=== PATIENT | female | born 1955 | race Caucasian/White ===

== ENCOUNTER 2018-10-26 17:59 | Emergency (ER) | payer BC, OTHER ==
--- OUTSIDE RECORDS SUMMARY | 2018-10-26 18:05 | XMS REPORT | Continuity of Care Document ---
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 Employees Georgina Bosch PayID: [id number] [address] [place] [address] Advance Directives Description No Information Available Problems Active Problems Provider Date Flatulence, eructation and gas pain Trino Gee MD Onset: 10/12/2018 Family History Description No Information Available Social History Type Date Description Comments Sex Unknown Tobacco Use Start: Unknown End: Unknown Patient is a former smoker Smoking Status Reviewed: 10/12/18 Patient is a former smoker Allergies, Adverse Reactions, Alerts Active Allergies Reaction Severity Comments Date Lamotrigine 10/12/2018 Medications Active Medications SIG Qnty Indications Ordering Date Provider Clonazepam take 1 tablet by Unknown 1mg Tablets mouth every evening at bedtime Fluvoxamine Maleate ER take 2 capsules by Unknown mouth every morning 150mg Caps ER 24HR with food Aripiprazole Unknown 2mg Tablets Trazodone HCL Unknown 50mg Tablets Breo Ellipta Unknown 200-25mcg/Inh Aerosol Mometasone Furoate instill 2 sprays into Unknown each nostril daily 50mcg/Act Suspension Levocetirizine take 1 tablet by Unknown Dihydrochloride mouth once daily as 5mg Needed Tablets Albuterol Sulfate HFA inhale 2 puffs by Unknown mouth every 4 hours 108(90Base) mcg/Act as Needed Aerosol Prolia inject subcutaneously Unknown 60mg/ml Soln every 6 MonthsTo Be Prefill Syringe Administered AT Doctor's Office Metoprolol Succinate Unknown ER 50mg Tablets ER 24HR Fluvoxamine Maleate Unknown 100mg Tablets Ra Vitamin D-3 take 1 capsule by Unknown 5000Unit mouth once daily or 7 Capsules capsules weekly Azelastine HCL (Nasal) instill 1 spray into Unknown each nostril twice a 0.1% Solution day for 7 days Immunizations Description No Information Available Vital Signs Date Vital Result Comment 10/12/2018 2:22pm Height 61 inches 5'1" Weight 132.00 lb BP Systolic 106 mmHg BP Diastolic 65 mmHg Heart Rate 60 /min BMI (Body Mass Index) 24.9 kg/m2 Results Description No Information Available Procedures Description No Information Available Encounters Description No Information Available Plan of Treatment Future Appointment(s):10/27/2018 10:00 am - Laboratory at [facility]10/12/2018 - Trino Gee, MDR14.0 Abdominal distension (gaseous)New Labs:Breath Test Sbbo (Gai), Ordered: 10/12/18Comments:I had a very long discussion with the patient regarding her symptoms. We discussed bacterial overgrowth carbohydrate malabsorption and celiac disease. We also discussed irritable bowel syndrome. At this point I would like to evaluate her for small intestinal bacterial overgrowth with a breath test. I will make arrangements for her. I additionally gave her peppermint oil capsules to try these in case there is a component of irritable bowel syndrome here. She will try these and call me back. I will follow up with their her bacterial overgrowth breath test
[2018-10-26] MEDS ORDERED: NS 0.9% 1000 ML** 1,000 ML IV SCH (18:45)
--- NOTE | 2018-10-26 18:48 | UC ---
Cardiac HPI - HPI Summary HPI Summary: OVER THE PAST FEW DAYS PATIENT HAS HAD WORSENING INTERMITTENT MIDSTERNAL CHEST PRESSURE AND SHORTNESS OF BREATH. FEELS UNSTEADY ON HER FEET AND STATES SHE HAS BEEN LOSING HER BALANCE AND FALLING INTO THINGS. SHE IS COMPLAINING OF SOME NUMBNESS AND TINGLING IN HER FINGERS. HAS DRY MOUTH. IS COMPLAINING OF SOME DIZZINESS AND CONFUSION. STATES SHE HAS HISTORY OF AN ARRHYTHMIA BUT NO OTHER CARDIAC HISTORY THAT SHE IS REPORTING. AT THE TIME OF EXAM SHE STATES SHE IS CHEST PAIN-FREE. - History of Current Complaint Chief Complaint: UCChestPain Stated Complaint: CHEST PAIN Time Seen by Provider: 10/26/18 18:02 Hx Obtained From: Patient Onset/Duration: Gradual Onset, Lasting Days, Still Present Initial Severity: Moderate Current Severity: Moderate Pain Intensity: 4 Chest Pain Location: Mid Sternal Character: Pressure/Squeezing Aggravating Factor(s): Nothing Alleviating Factor(s): Nothing Associated Signs & Symptoms: Positive: Chest Pain, Anxiety, Numbness, Tingling, Dizziness, SOB. Negative: Nausea/Vomiting, Cough - Allergy/Home Medications Allergies/Adverse Reactions: Allergies Allergy/AdvReac Type Severity Reaction Status Date / Time bee venom protein (honey bee) Allergy Severe Anaphylatic Verified 10/26/18 18:12 Shock lamotrigine Allergy Severe REACTS Verified 10/26/18 18:12 WITH "A SYNDROME" Home Medications: Home Medications Fluvoxamine (NF) [Luvox (NF)] 300 mg PO DAILY 10/26/18 [History Confirmed ] Meds For Depression* 10/26/18 [History] Meds For Ocd* 10/26/18 [History] Metoprolol Tartrate TAB* [Lopressor TAB*] 25 mg PO DAILY 10/26/18 [History Confirmed 10/26/18] clonazePAM TAB(*) [KlonoPIN TAB(*)] 1 mg PO DAILY 10/26/18 [History Confirmed ] traZODone TAB* [Desyrel TAB*] 50 mg PO DAILY 10/26/18 [History Confirmed ] PMH/Surg Hx/FS Hx/Imm Hx Cardiovascular History: Cardiac Disease - "ARRHYTHMIA" Psychological History: Anxiety, Depression - Surgical History Surgical History: Yes Surgery Procedure, Year, and Place: - Family History Known Family History: Positive: Hypertension - Social History Alcohol Use: None Substance Use Type: None Smoking Status (MU): Former Smoker Review of Systems All Other Systems Reviewed And Are Negative: Yes Constitutional: Positive: Fatigue Respiratory: Positive: Shortness Of Breath Cardiovascular: Positive: Chest Pain Gastrointestinal: Positive: Negative Genitourinary: Positive: Negative Neurological: Positive: Weakness, Paresthesia, Other - DIZZY Physical Exam Triage Information Reviewed: Yes Appearance: No Pain Distress, Well-Nourished, Other: - APPEARS FATIGUED, LISTLESS Vital Signs: Initial Vital Signs Temp 97.6 F 10/26/18 18:05 Pulse 54 10/26/18 18:05 Resp 18 10/26/18 18:05 BP 125/63 10/26/18 18:05 Pulse Ox 98 10/26/18 18:05 Vital Signs Reviewed: Yes Eyes: Positive: Conjunctiva Clear ENT: Positive: Hearing grossly normal Neck: Positive: Supple, Nontender, No Lymphadenopathy Respiratory Exam: Normal Cardiovascular: Positive: Bradycardia - IRREGULAR Abdomen Description: Positive: Nontender, Soft Musculoskeletal: Positive: No Edema Neurological: Positive: Alert Psychological: Positive: Age Appropriate Behavior Skin: Negative: Rashes Diagnostics - EKG Cardiac Rate: NL - 62BPM Cardiac Rhythm: Sinus: Normal Ectopy: PVCs ST Segment: Normal - Assessment/Plan Course Of Treatment: PATIENT WITH MIDSTERNAL CHEST PRESSURE, DIZZINESS, SHORTNESS OF BREATH, INTERMITTENT CONFUSION ALL GETTING WORSE OVER THE PAST 5 DAYS. STATES SHE FEELS UNSTEADY ON HER FEET AND HAS BEEN STUMBLING INTO THINGS. ALSO COMPLAINING OF SOME NUMBNESS AND TINGLING IN HER HANDS AND DRY MOUTH. ON EKG SHE IS FOUND TO BE SOMEWHAT BRADYCARDIAC WITH MULTIPLE PVCS. GIVEN THIS CONSTELLATION OF SYMPTOMS SHE NEEDS A HIGHER LEVEL OF CARE THAN WHAT IS AVAILABLE HERE AT THE . SHE WILL BE TRANSFERRED BY AMBULANCE TO THE [facility] FOR FURTHER EVALUATION. - Clinical Impression Provider Diagnosis: Chest pain, Bradycardia - Physician Notifications Discussed Patient Care With: Misty Kumar - TO [facility] BY AMBULANCE Time Discussed With Above Provider: 18:39 Instructed by Provider To: MD Will See In ED Discharge - Sign-Out/Discharge Documenting (check all that apply): Patient Departure All imaging exams completed and their final reports reviewed: No Studies - Discharge Plan Condition: Guarded Disposition: TRANS HIGHER LVL OF CARE FAC Referrals: Jennifer GARRETT,Alma Cortes [Primary Care Provider] - - Billing Disposition and Condition Condition: GUARDED Disposition: Trans Higher Lvl of Care Fac
[2018-10-26 18:50] VITALS: BP 101/51
== END 2018-10-26 18:57 | disposition short-term general hospital (02) ==
LOC: UCEAST 17:59
DX: R07.9 Chest pain, unspecified (principal); R00.1 Bradycardia, unspecified
CPT/HCPCS: 93005; 99214; G0463

== ENCOUNTER 2018-10-26 19:21 | Emergency (ER) | payer BC ==
[2018-10-26 20:33] LABS: ABS Eosinophils 0.1 10^3/ul (0-0.6); ABS Lymphocytes 0.8 10^3/ul (1.0-4.8); ABS Monocytes 0.3 10^3/ul (0-0.8); ABS Neutrophils 2.7 10^3/ul (1.5-7.7); Eosinophil % 1.5 %; Hematocrit 41 % (35-47); Hemoglobin 13.7 g/dL (12.0-16.0); Lymphocyte % 21.4 %; Mean Corpuscular HGB Conc 34 g/dL (31-36); Mean Corpuscular Hemoglobin 32 pg (27-31); Mean Corpuscular Volume 96 fL (80-97); Mean Platelet Volume 8.4 fL (7.4-10.4); Nucleated Red Blood Cells % 0.1; Platelet Count 200 10^3/uL (150-450); Red Blood Count 4.25 10^6 /uL (3.70-4.87); Red Cell Distribution Width 13 % (10.5-15); White Blood Count 3.8 10^3/uL (3.5-10.8)
[2018-10-26 20:49] LABS: Albumin 4.1 g/dL (3.2-5.2); Albumin/Globulin Ratio 1.6 (1-3); BUN/Creatinine Ratio 18.1 (8-20); Calcium 8.6 mg/dL (8.6-10.3); EGFR Non-African American 69.4 (>60); Globulin 2.5 g/dL (2-4); Magnesium 1.9 mg/dL (1.9-2.7); Total Bilirubin 0.8 mg/dL (0.2-1.0); Total Protein 6.6 g/dL (6.4-8.9)
--- NOTE | 2018-10-26 21:11 | ED ---
Complex/Multi-Sys Presentation - HPI Summary HPI Summary: A 63 y/o F brought in by ambulance from [facility] presents to ED with chest discomfort described as pressure ongoing for the past week, and worsening in the past 5 days. Associated sx: intermittent tingling and numbness in fingers and toes; BOYKIN, dyspnea, dizziness, dry mouth, unsteady gait, blurry vision, mild pedal edema, memory loss. Denies syncope, fever, rash, weight loss, recent falls , head trauma. PMHx: hypotension previously, HTN, arrhythmia, OCD, anxiety and depression. Denies DM. She takes Metoprolol. Patient is [place] and states stress due to country's current political condition. 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 - History Of Current Complaint Chief Complaint: EDChestPainROMI Time Seen by Provider: 10/26/18 19:24 Hx Obtained From: Patient, EMS Onset/Duration: Gradual Onset, Lasting Weeks - one week, Still Present Timing: Constant Severity Currently: Moderate Severity Initially: Moderate Character: Pressure Aggravating Factor(s): Nothing Associated Signs And Symptoms: Positive: Dizziness, Edema - mild bilat LE, Other - pos: intermittent tingling and numbness in fingers and toes; BOYKIN, dyspnea , dry mouth, unsteady gait, blurry vision, memory loss. neg: rash, weight loss, recent falls, head trauma.. Negative: Syncope, Fever - Allergies/Home Medications Allergies/Adverse Reactions: Allergies Allergy/AdvReac Type Severity Reaction Status Date / Time bee venom protein (honey bee) Allergy Severe Anaphylatic Verified 10/26/18 19:36 Shock lamotrigine Allergy Severe REACTS Verified 10/26/18 19:36 WITH "A SYNDROME" PMH/Surg Hx/FS Hx/Imm Hx Previously Healthy: No Endocrine/Hematology History: Denies: Hx Diabetes Cardiovascular History: Reports: Hx Hypotension, Hx Hypertension Psychiatric History: Reports: Hx Anxiety, Hx Depression, Other Psychiatric Issues/Disorders - pos: OCD - Cancer History Hx Chemotherapy: No Hx Radiation Therapy: No - Surgical History Surgery Procedure, Year, and Place: Infectious Disease History: No Infectious Disease History: Denies: Traveled Outside the [place] in Last 30 Days - Family History Known Family History: Positive: Hypertension - Social History Occupation: Employed Full-time Lives: Alone Alcohol Use: None Hx Substance Use: No Substance Use Type: Reports: None Hx Tobacco Use: Yes Smoking Status (MU): Former Smoker Review of Systems Negative: Fever Positive: Blurred Vision Positive: Other - pos: dry mouth Positive: Chest Pain - described as discomfort/pressure Positive: Other - pos: dyspnea Positive: Edema - mild pedal edema Negative: Rash Neurological: Other - pos: dizziness, unsteady gait, memory loss Positive: Headache, Numbness - and tingling to fingers and toes. Negative: Syncope All Other Systems Reviewed And Are Negative: Yes Physical Exam - Summary Physical Exam Summary: Appearance: Well-appearing, Well-nourished, lying in bed comfortably, anxious Skin: Warm, dry, no obvious rash Eyes: sclera anicteric, no conjunctival pallor ENT: mucous membranes moist, pharynx appears normal Neck: Supple, nontender Respiratory: Clear to auscultation, no signs of respiratory distress Cardiovascular: Normal S1, S2. No murmurs. Normal distal pulses in tibial and radial bilaterally. Abdomen: Soft, nontender, normal active bowel sounds present Musculoskeletal: Normal, Strength/ROM Intact Neurological: A&Ox3, awake and alert, mentation is normal, speech is fluent and appropriate Psychiatric: affect is normal, does not appear depressed, anxious Triage Information Reviewed: Yes Vital Signs On Initial Exam: Initial Vitals Temp Pulse Resp BP Pulse Ox 97.1 F 60 16 128/65 100 10/26/18 19:25 10/26/18 19:25 10/26/18 19:25 10/26/18 19:25 10/26/18 19:25 Vital Signs Reviewed: Yes Diagnostics - Vital Signs Vital Signs Temp Pulse Resp BP Pulse Ox 10/26/18 20:29 35 19 100/44 97 10/26/18 20:01 57 18 96 10/26/18 19:59 59 19 105/52 98 10/26/18 19:29 52 12 128/65 100 10/26/18 19:28 63 94 10/26/18 19:25 97.1 F 60 16 128/65 100 - Laboratory Lab Results: Lab Results 10/26/18 10/26/18 10/26/18 Range/Units 20:14 20:14 20:14 WBC 3.8 (3.5-10.8) 10^3/uL RBC 4.25 (3.70-4.87) 10^6 /uL Hgb 13.7 (12.0-16.0) g/dL Hct 41 (35-47) % MCV 96 (80-97) fL MCH 32 H (27-31) pg MCHC 34 (31-36) g/dL RDW 13 (10.5-15) % Plt Count 200 (150-450) 10^3/uL MPV 8.4 (7.4-10.4) fL Neut % (Auto) 69.8 % Lymph % (Auto) 21.4 % [place] % (Auto) 6.7 % Eos % (Auto) 1.5 % Baso % (Auto) 0.6 % Absolute Neuts (auto) 2.7 (1.5-7.7) 10^3/ul Absolute Lymphs (auto) 0.8 L (1.0-4.8) 10^3/ul Absolute Monos (auto) 0.3 (0-0.8) 10^3/ul Absolute Eos (auto) 0.1 (0-0.6) 10^3/ul Absolute Basos (auto) 0.0 (0-0.2) 10^3/ul Absolute Nucleated RBC 0.0 10^3/ul Nucleated RBC % 0.1 Sodium 137 (135-145) mmol/L Potassium 4.0 (3.5-5.0) mmol/L Chloride 105 (101-111) mmol/L Carbon Dioxide 26 (22-32) mmol/L Anion Gap 6 (2-11) mmol/L BUN 15 (6-24) mg/dL Creatinine 0.83 (0.51-0.95) mg/dL Est GFR ( Amer) 84.0 (>60) Est GFR (Non-Af Amer) 69.4 (>60) BUN/Creatinine Ratio 18.1 (8-20) Glucose 94 (70-100) mg/dL Lactic Acid 0.6 (0.5-2.0) mmol/L Calcium 8.6 (8.6-10.3) mg/dL Magnesium 1.9 (1.9-2.7) mg/dL Total Bilirubin 0.80 (0.2-1.0) mg/dL AST 15 (13-39) U/L ALT 13 (7-52) U/L Alkaline Phosphatase 51 (34-104) U/L Troponin I 0.00 (<0.04) ng/mL Total Protein 6.6 (6.4-8.9) g/dL Albumin 4.1 (3.2-5.2) g/dL Globulin 2.5 (2-4) g/dL Albumin/Globulin Ratio 1.6 (1-3) TSH Pending Result Diagrams: 10/26/18 20:14 10/26/18 20:14 Lab Statement: Any lab studies that have been ordered have been reviewed, and results considered in the medical decision making process. - EKG 1934 Cardiac Rate: Bradycardia - 54 bpm EKG Rhythm: Sinus Bradycardia Summary of EKG Findings: Sinus asya at 54 BPM, P waves, QRS complex, and T waves are within normal limits, T waves and intervals are normal, no ischemic changes. Re-Evaluation - Re-Evaluation 1 Re-Evaluation Time: 23:05 Change: Improved Comment: Discussing results with patient and plans for discharge, patient is agreeable to this plan. Complex Multi-Symp Course/Dx Course Of Treatment: Patient is a 63 y/o F brought in by ambulance from [facility] presenting with chest discomfort/pressure ongoing for the past week and worsening. Associated sx: intermittent tingling and numbness in fingers and toes ; BOYKIN, dyspnea, dizziness, dry mouth, unsteady gait, blurry vision, mild pedal edema, memory loss. She takes Metoprolol. Lab work is without significant abnormality. EKG shows sinus asya at 54 BPM, P waves, QRS complex, and T waves are within normal limits, T waves and intervals are normal, no ischemic changes. Will discharge patient home. - Diagnoses Provider Diagnoses: Palpitations, Chest pain Discharge - Sign-Out/Discharge Documenting (check all that apply): Patient Departure - D/C Patient Received Moderate/Deep Sedation with Procedure: No - Discharge Plan Condition: Stable Disposition: HOME Patient Education Materials: Chest Pain (ED), Heart Palpitations (ED) Referrals: Jennifer GARRETT,Alma Cortes [Primary Care Provider] - 3 Days - Billing Disposition and Condition Condition: STABLE Disposition: Home - Attestation Statements Document Initiated by Scribe: Yes Documenting Scribe: Rohit Quigley Provider For Whom Scribe is Documenting (Include Credential): Dr. Jeremy Dawn MD Scribe Attestation: I, Rohit Quigley, scribed for Dr. Jeremy Dawn MD on 10/27/18 at 0308. Scribe Documentation Reviewed: Yes Provider Attestation: The documentation as recorded by the juany, Rohit Quigley accurately reflects the service I personally performed and the decisions made by me, Dr. Jeremy Dawn MD Status of Scribe Document: Viewed
[2018-10-26] MEDS ORDERED: LORazepam TAB(*) 1 MG PO ONE (21:23)
[2018-10-26 21:24] LABS: TSH (Thyroid Stimulating Horm) 1.04 mcIU/mL (0.34-5.60)
[2018-10-27 00:13] VITALS: BP 98/56
== END 2018-10-27 | disposition home or self-care (01) ==
LOC: ED 19:21
DX: R00.2 Palpitations (principal); R07.9 Chest pain, unspecified; R42 Dizziness and giddiness; R60.0 Localized edema; Z87.891 Personal history of nicotine dependence; H53.8 Other visual disturbances; I10 Essential (primary) hypertension
CPT/HCPCS: 36415; 80053; 83605; 83735; 84443; 84484; 85025; 86618; 86703; 93005; 99283; A9270-GY

== ENCOUNTER 2024-04-17 06:56 | Observation (INO) ==
[2024-04-17 07:22] LABS: ABS Eosinophils 0.1 10^3/uL (0.0-0.5); ABS Lymphocytes 0.6 10^3/uL (1.0-4.8); ABS Monocytes 0.5 10^3/uL (0.0-0.9); ABS Neutrophils 5.9 10^3/uL (1.5-7.6); Eosinophil % 1.5 %; Hematocrit 39.7 % (35-45); Hemoglobin 13.8 g/dL (11.5-14.3); Lymphocyte % 9.1 %; Mean Corpuscular Hemoglobin 33.2 pg (27-33); Mean Corpuscular Hgb Conc 34.9 g/dL (31-36); Mean Corpuscular Volume 95.1 fL (80-97); Mean Platelet Volume 7.6 fL (7.5-11.2); Platelet Count 215 10^3/uL (150-450); Red Blood Count 4.17 10^6/uL (3.63-4.92); Red Cell Distribution Width 12.4 % (12-17); White Blood Count 7.1 10^3/uL (3.8-11.8)
[2024-04-17 07:24] LABS: INR 1.16 (0.85-1.14)
[2024-04-17 08:05] LABS: Albumin 4.1 g/dL (3.2-5.2); Albumin/Globulin Ratio 1.9 (1-3); Calcium 9.5 mg/dL (8.6-10.3); Creatinine, Serum 1.07 mg/dL (0.51-0.95); Globulin 2.2 g/dL (2-4); Magnesium 1.8 mg/dL (1.9-2.7); Potassium 3.6 mmol/L (3.5-5.0); Total Bilirubin 1.4 mg/dL (0.2-1.0); Total Protein 6.3 g/dL (6.4-8.9); eGFR CKD-EPI 56.2 (>60)
[2024-04-17] MEDS: Morphine 4 MG/ML VIAL (1 ml) IV ONE (08:25)
[2024-04-17] MEDS: Ondansetron 4 mg VIAL 2 MG/ML 2 ml VIAL IV ONE (08:25)
[2024-04-17] MEDS: Magnesium Sulfate IV 1GM/100ML 1 GM/100 ML BAG IV ONE (08:29)
[2024-04-17 08:55] LABS: High Sensitivity Troponin 1 Hr 4 pg/mL (<15)
[2024-04-17] MEDS: Famotidine IV 10 MG/ML 2 ml VIAL (20 mg) IV SLOW PU ONE (09:32)
[2024-04-17] MEDS: Iodixanol 320 (CONTRAST) 100 ML SDV IV ONE (10:50)
[2024-04-17] MEDS: Piperacillin/Tazobac 3.375 BAG 3.375 GM/100 ML BAG IV ONE (11:54)
[2024-04-17 12:07] LABS: C Reactive Protein 6.82 mg/L (<8.01)
[2024-04-17] MEDS: Lactated Ringers 1000 ml BAG 1,000 ML IV ONE ×2 (12:39→16:42)
[2024-04-17] MEDS ORDERED: Acetaminophen IV 1 GM/100ML 1,000 MG/100 ML BAG IV PRN (18:35)
[2024-04-17] MEDS: NS 0.9% 1000 ml BAG 1,000 ML IV SCH (18:51)
[2024-04-17] MEDS ORDERED: Zosyn per Pharmacy NOTE FOLLOW UP SCH (19:00)
[2024-04-17] MEDS ORDERED: Albuterol HFA INHALER 8 gm MDI INH PRN (19:29)
[2024-04-17] MEDS ORDERED: [UNRECOGNIZED DRUG - REMARK] PO SCH (19:30)
[2024-04-17] MEDS ORDERED: Naloxone 0.4 mg VIAL 0.4 mg/ml 1 ml VIAL IV PUSH PRN (20:00)
[2024-04-17] MEDS: Heparin 5000 UNITS/ML 1 mL VIAL SUBCUT SCH (20:06)
[2024-04-17] MEDS: Zosyn 3.375 GM IV - ED ONCE IV ONE (20:08)
[2024-04-17] MEDS ORDERED: [UNRECOGNIZED DRUG - REMARK] PO SCH (21:00)
[2024-04-17] MEDS ORDERED: Heparin 5000 UNITS/ML 1 mL VIAL SUBCUT SCH (21:00)
[2024-04-17] MEDS: Polyethylene Glycol 3350 17 GM PACKET PO SCH (21:03)
[2024-04-17] MEDS: Senna TAB 8.6 mg TAB PO SCH (21:04)
[2024-04-17] MEDS: FluvoxaMINE 50 mg TAB (NF) PO SCH (21:27)
[2024-04-17] MEDS: ZOSYN 3.375 GM Q8H per EXTENDED INFUSION IV SCH ×2 (22:53→23:48)
[2024-04-17] MEDS ORDERED: Fluticasone NASAL SPRAY 50MCG 16 gm SPRAY BTL BOTH NARES PRN (23:49)
[2024-04-18 06:53] LABS: ABS Eosinophils 0.1 10^3/uL (0.0-0.5); ABS Lymphocytes 0.9 10^3/uL (1.0-4.8); ABS Monocytes 0.4 10^3/uL (0.0-0.9); Hematocrit 35.7 % (35-45); Hemoglobin 12.3 g/dL (11.5-14.3); Lymphocyte % 26.2 %; Mean Corpuscular Hemoglobin 33.4 pg (27-33); Mean Corpuscular Hgb Conc 34.5 g/dL (31-36); Mean Corpuscular Volume 96.7 fL (80-97); Nucleated Red Blood Cells % 0.1 %/100WBC (0.0-0.8); Platelet Count 181 10^3/uL (150-450); Red Blood Count 3.69 10^6/uL (3.63-4.92); Red Cell Distribution Width 12.7 % (12-17); White Blood Count 3.4 10^3/uL (3.8-11.8)
[2024-04-18 07:11] LABS: Albumin 3.4 g/dL (3.2-5.2); Albumin/Globulin Ratio 1.9 (1-3); Calcium 7.9 mg/dL (8.6-10.3); Creatinine, Serum 0.93 mg/dL (0.51-0.95); Globulin 1.8 g/dL (2-4); Potassium 4.3 mmol/L (3.5-5.0); Total Bilirubin 1.4 mg/dL (0.2-1.0); Total Protein 5.2 g/dL (6.4-8.9); eGFR CKD-EPI 66.5 (>60)
[2024-04-18 09:20] LABS: Digoxin 0.7 ng/ml (0.8-2.0)
[2024-04-18] MEDS: Ondansetron 4 mg VIAL 2 MG/ML 2 ml VIAL IV PRN (10:12)
[2024-04-18] MEDS: Lactated Ringers 1000 ml BAG 1,000 ML IV ONE (10:27)
[2024-04-18] MEDS: Morphine 2 MG/ML SYRINGE IV PRN (15:15)
[2024-04-18] MEDS ORDERED: Ondansetron 4 mg VIAL 2 MG/ML 2 ml VIAL ONE (15:53)
[2024-04-18] MEDS ORDERED: Lidocaine 2% PF 5 ML VIAL ONE (15:53)
[2024-04-18] MEDS ORDERED: Dexamethasone IV 4 MG/ML VIAL 1 ml VIAL ONE (15:53)
[2024-04-18] MEDS ORDERED: Propofol 10 MG/ML 20 ML BTL ONE (15:53)
[2024-04-18] MEDS ORDERED: Rocuronium 50 mg VIAL 10 mg/ml 5 ml VIAL (50 mg) ONE (15:54)
[2024-04-18] MEDS ORDERED: fentaNYL 100 mcg/2 ml 50 MCG/ML VIAL ONE ×2 (15:54→18:13)
[2024-04-18] MEDS ORDERED: Midazolam 2 mg/2 ml VIAL 1 mg/ml 2 ml VIAL (2 mg) ONE (15:54)
[2024-04-18] MEDS ORDERED: Bupivacaine 0.25% EPI 200,000 30 ML SDV ONE (16:04)
[2024-04-18] MEDS ORDERED: Glycopyrrolate IV 0.2 MG/ML 1 ML VIAL ONE (16:29)
[2024-04-18] MEDS: ZOSYN 3.375 GM Q8H per EXTENDED INFUSION IV SCH (20:40)
[2024-04-18] MEDS: HYDROmorphone 0.5 MG/0.5 ML SYRINGE IV SLOW PU PRN (23:33)
[2024-04-19 06:55] LABS: ABS Lymphocytes 0.3 10^3/uL (1.0-4.8); ABS Monocytes 0.2 10^3/uL (0.0-0.9); ABS Neutrophils 6.6 10^3/uL (1.5-7.6); ABS Nucleated RBC 0.01 10^3/ul; Hematocrit 36.6 % (35-45); Hemoglobin 12.6 g/dL (11.5-14.3); Lymphocyte % 4.7 %; Mean Corpuscular Hemoglobin 33.2 pg (27-33); Mean Corpuscular Hgb Conc 34.5 g/dL (31-36); Mean Corpuscular Volume 96.2 fL (80-97); Mean Platelet Volume 8.1 fL (7.5-11.2); Nucleated Red Blood Cells % 0.1 %/100WBC (0.0-0.8); Platelet Count 193 10^3/uL (150-450); Red Cell Distribution Width 12.7 % (12-17); White Blood Count 7.2 10^3/uL (3.8-11.8)
[2024-04-19 07:14] LABS: Calcium 7.8 mg/dL (8.6-10.3); Creatinine, Serum 0.75 mg/dL (0.51-0.95); Magnesium 1.9 mg/dL (1.9-2.7); Potassium 4.3 mmol/L (3.5-5.0); eGFR CKD-EPI 86.1 (>60)
[2024-04-19 08:42] LABS: Albumin 3.6 g/dL (3.2-5.2); Albumin/Globulin Ratio 1.7 (1-3); Direct Bilirubin 0.2 mg/dL (0.03-0.18); Globulin 2.1 g/dL (2-4); Indirect Bilirubin 0.5 mg/dL (0.3-1.0); Total Bilirubin 0.7 mg/dL (0.2-1.0); Total Protein 5.7 g/dL (6.4-8.9)
[2024-04-19] MEDS: NS 0.9% 500 ml BAG 500 ML IV ONE (14:26)
[2024-04-19 15:20] LABS: Urine Appearance Clear; Urine Bilirubin Negative (Negative); Urine Blood Negative (Negative); Urine Color Light-Yellow; Urine Glucose Negative (Negative); Urine Ketones Negative (Negative); Urine Nitrite Negative (Negative); Urine Protein Negative (Negative); Urine Specific Gravity 1.008 (1.002-1.030); Urine Urobilinogen Negative (Negative); Urine pH 6.5 (5.0-8.0)
[2024-04-20 06:51] LABS: Albumin 3.9 g/dL (3.2-5.2); Albumin/Globulin Ratio 1.9 (1-3); Calcium 8.5 mg/dL (8.6-10.3); Creatinine, Serum 1.05 mg/dL (0.51-0.95); Globulin 2.1 g/dL (2-4); Potassium 4.7 mmol/L (3.5-5.0); Total Bilirubin 0.6 mg/dL (0.2-1.0); eGFR CKD-EPI 57.5 (>60)
[2024-04-20 14:51] VITALS: BP 111/73
== END 2024-04-20 07:56 | disposition home or self-care (01) ==
LOC: ED 06:56 → EDHOLD 06:56 → OR 14:26 → SUATTDRO 17:47 → MED 21:40
PROVIDERS: ADMIT Internal Medicine; ATTEND Hospitalist